=== PATIENT | male | born 1950 | race Caucasian/White ===

== ENCOUNTER → 2018-01-27 | Day surgery (SDC) | payer OTHER ==
[~2018-01-27] MED LIST: ACETAMINOPHEN 1000 MG/100 ML 100 ML IV ONE; BUPIVACAINE/EPINEPHRINE 0.5% PF 10 ML VIAL ONE; SUGAMMADEX SODIUM 200 MG/2 ML VIAL IV PUSH ONE
== END | disposition home or self-care (01) ==
LOC: HSDC 14:25
PROVIDERS: ATTEND Surgery Trauma Surgery
DX: K35.80 Unspecified acute appendicitis (principal)
CPT/HCPCS: J0131; J3010